=== PATIENT | female | born 1955 | race Caucasian/White ===

== ENCOUNTER 2017-03-06 01:29 | Inpatient (IN) | payer OTHER ==
--- NOTE | ~2017-03-06 | PN ---
Unit #: [id number] #: [id number] Patient: CESARIO LESTER [id number] [facility] [address] [place] [address] [id number] I MR#: [id number] NAME: CESARIO LESTER ROOM: P202 Age: 61 Sex: F Admission Date: 03/06/2017 : 1955 Attending Physician: Ramón [place] M.D. Admitting Physician: Ramón [place] M.D. Primary Care Physician: Andreia JEFFERSON PROGRESS NOTES DATE 03/12/2017 DISCUSSION Cesario has completed detox but still complains of anxiety "nerves through the roof" and difficulty with depression. She has no actual suicidal ideation but cannot contract for safety. She appears mildly disheveled but is more alert and oriented and participating more appropriately. She has no evidence of psychosis. ASSESSMENT Opiate dependence, major depression. PLAN We will restart Neurontin 800 mg three times a day from her primary care physician for neuropathy and increase Celexa to 40 mg a day. Dictated by... Ramón [place] M.D. RUI/brit TD: 03/13/2017 11:45 JOB #: [id number] RONNY PROGRESS NOTES Page 1 of 1 X Ramón [place] MD PROGRESS NOTE
--- NOTE | ~2017-03-06 | PN ---
Unit #: [id number] #: [id number] Patient: CESARIO LESTER [id number] [facility] [address] [place] [address] [id number] I MR#: [id number] NAME: CESARIO LESTER ROOM: P202 Age: 61 Sex: F Admission Date: 03/06/2017 : 1955 Attending Physician: Ramón [place] M.D. Admitting Physician: Ramón [place] M.D. Primary Care Physician: Andreia JEFFERSON PROGRESS NOTES DATE 03/13/2017 DISCUSSION Cesario shows improvement today. Her mood is less labile with a brighter affect. She is alert and fully oriented with no evidence of psychosis. She is able to contract for safety upon discharge. ASSESSMENT 1. Opiate dependence. 2. Major depression. PLAN Anticipate discharge in the morning with followup through community mental health. Dictated by... Ramón [place] M.D. MRH/bzg TD: 03/15/2017 12:55 JOB #: [id number] [facility] PROGRESS NOTES Page 1 of 1 X Ramón [place] MD X PROGRESS NOTE
--- NOTE | ~2017-03-06 | PN ---
Unit #: [id number] #: [id number] Patient: CESARIO LESTER [id number] [facility] [address] [place] [address] [id number] MR#: [id number] NAME: CESARIO LESTER ROOM: P202 Age: 61 Sex: F Admission Date: 03/06/2017 : 1955 Attending Physician: Ramón [place] M.D. Admitting Physician: Ramón [place] M.D. Primary Care Physician: Rachele Lerma PROGRESS NOTES DATE 03/10/2017 DISCUSSION Cesario is tolerating her antidepressant medication with no significant adverse side effect. She is somewhat sleepy this morning and continues to received detox medications. She is alert and fully oriented with no evidence of psychosis but ongoing mood lability. ASSESSMENT Benzodiazepine dependence, major depression. PLAN Continue current treatment plan. Dictated by... Ramón [place] M.D. MRH/ts TD: 03/13/2017 08:54 JOB #: [id number] RONNY PROGRESS NOTES Page 1 of 1 X Ramón [place] MD X PROGRESS NOTE
--- NOTE | ~2017-03-06 | HP ---
Unit #: [id number] #: [id number] Patient: CESARIO LESTER [id number] [facility] [address] [place] [address] [id number] I MR#: [id number] NAME: CESARIO LESTER ROOM: P202 Age: 61 Sex: F Admission Date: 03/06/2017 : 1955 Attending Physician: Ramón [place] M.D. Admitting Physician: Ramón [place] M.D. Primary Care Physician: Andreia Alexander HISTORY AND PHYSICAL HISTORY OF PRESENT ILLNESS Cesario is a 61 year old admitted to [address] [place] [address] because of her drug use which now includes IV heroin. PAST MEDICAL HISTORY 1. Long history of illicit substance abuse to include crack cocaine and IV heroin. 2. COPD. 3. Hepatitis C. a. Cirrhosis. 4. History of PUD. PAST SURGICAL HISTORY Hysterectomy. ALLERGIES Tolvin, codeine, aspirin. SOCIAL HISTORY Smokes greater than 1 pack per day. Denies alcohol. Admits to a long history of illicit substance abuse. FAMILY HISTORY Medically noncontributory. REVIEW OF SYSTEMS CONSTITUTIONAL: No fever or chills. HEENT: Denies any sore throat, ear pain or runny nose. CARDIOVASCULAR: Denies chest pain, irregular heart rhythm or palpitations. CHEST: Denies shortness of breath or cough. No hemoptysis. GASTROINTESTINAL: Denies nausea, vomiting, diarrhea or chronic constipation. ENDOCRINE: Denies history of increased thirst or urination. No recent significant weight loss or gain. GENITOURINARY: Denies dysuria, frequency, or hematuria. SKIN: Denies any rashes. HEMATOLOGIC: Denies history of increased bleeding or bruising. MUSCULOSKELETAL: Denies any hot, swollen joints. No generalized muscle pain. NEUROLOGIC: Denies problems with vision or speech. No frequent, severe headaches. No numbness, tingling or weakness in any extremities. Denies loss of bladder or bowel control. Unit #: [id number] #: [id number] Patient: CESARIO LESTER CURRENT MEDICATIONS 1. Detox protocol. 2. Proventil inhaler p.r.n. 3. Spiriva 18 mcg daily. 4. Claritin 10 mg daily. 5. Lyrica 150 mg b.i.d. 6. Lioresal 10 mg b.i.d. 7. Spironolactone 50 mg daily. 8. Lasix 40 mg daily. PHYSICAL EXAMINATION GENERAL: Alert, well-nourished, in no apparent distress. VITAL SIGNS: Blood pressure 100/56, heart rate 80, respirations 16, temperature 98.6. WEIGHT: 118. HEIGHT: 5 feet 1 inches. SKIN: Warm and dry without rash or lesion. HEENT: Normocephalic. TMs not viewed. Oral and nasal passages clear. Conjunctivae clear. PERRLA. EOMs intact. NECK: Supple without lymphadenopathy or thyromegaly. HEART: Regular rate and rhythm without murmur. LUNGS: Clear. ABDOMEN: Soft, nontender. : Not done. EXTREMITIES: No evidence of cyanosis, clubbing or edema. Moves all without focal deficit. NEUROLOGICAL: Grossly within normal limits. Cranial Nerves: II: Visual ulloa are intact. III, IV AND : Extraocular movements are intact. Pupils are equal, round and reactive to light. V: Facial sensation is grossly normal. VII: Facial movements and expression are normal. VIII: Auditory acuity grossly intact. IX, X: Uvula is midline. Phonation is normal. XI: Patient shrugs shoulders and turns head normally. XII: Tongue protrudes in the midline. Sensory and Motor Function: Sensory and motor sensation is grossly normal. Motor: moves all extremities well. Coordination: Gait is normal. Deep Tendon Reflexes: Intact. IMPRESSION Psychiatric admission. RECOMMENDATIONS PSYCHIATRIC: Per psychiatrist. MEDICAL: See no contraindications to participate in facility's activities. MEDICAL PROGNOSIS Good. MEDICAL CONDITION Stable. Dictated by... Danna Car P.A.-C. for Genie Witt M.D. Unit #: [id number] #: [id number] Patient: CESARIO LESTER SUE/dzjames TD: 03/06/2017 21:24 JOB #: [id number] HISTORY AND PHYSICAL Page 1 of 1 X Danna Car HISTORY AND PHYSICAL
--- NOTE | ~2017-03-06 | DS ---
Unit #: [id number] #: [id number] Patient: CESARIO LESTER [id number] [facility] [address] [place] [address] [id number] I MR#: [id number] NAME: CESARIO LESTER ROOM: P202 Age: 61 Sex: F Admission Date: 03/06/2017 : 1955 Discharge Date: 03/14/2017 Attending Physician: Ramnó [place] M.D. Primary Care Physician: Andreia [place] DISCHARGE SUMMARY REASON FOR ADMISSION Cesario is a 61-year-old woman with a history of polysubstance dependence, who had increasing depression, hopelessness, and had been using opioids and cocaine. She had a plan to shoot herself and could not contract for safety. She was admitted for stabilization. DIAGNOSTIC STUDIES LABORATORY RESULTS: Please see hospital chart. HOSPITAL COURSE The patient was admitted and placed on the opioid detox protocol and suicide precautions. Physical examination was conducted and was unremarkable and her home medications were restarted. She had initiation of antidepressant treatment which was well tolerated and effective. She continued to complain of anxiety which was treated with Neurontin. On the date of discharge, she was able to contract for safety in good condition and had no further suicidal ideation, intent, or plan. DISCHARGE DIAGNOSES AXIS I: Opioid dependence, major depression. AXIS II: No diagnosis. AXIS III: Hepatitis C, chronic obstructive pulmonary disease, history of cirrhosis. AXIS IV: AXIS V: DISCHARGE INSTRUCTIONS Follow up with primary care physician and with chemical dependence program as identified in conjunction with the unit social media developer. DISCHARGE MEDICATIONS Celexa 20 mg daily for depression, trazodone 200 mg at bedtime for insomnia, Neurontin 800 mg t.i.d. for anxiety. Other medications per primary care physician. CONDITION AT DISCHARGE Fair. PROGNOSIS Fair to good. Unit #: [id number] #: [id number] Patient: CESARIO LESTER DIET AND ACTIVITY Per primary care doctor. Dictated by... Ramón [place] M.D. RUI/dail TD: 03/15/2017 03:23 JOB #: [id number] DISCHARGE SUMMARY Page 1 of 1 X Ramón [place] MD X DISCHARGE SUMMARY
[~2017-03-06 01:29] MED LIST: ADVAIR 5001 DISK W/D PO; ALBUTEROL MININEB NEB; ALBUTEROL17 GM INH; ALBUTEROL17 GM NEB; ATROVENT NEB; FLAGYL PO; FLEXERIL PO; IMODIUM2 MG PO; LEVAQUIN PO; MEDROL PO; NICOTINE T1 PATCH .2 TOP; NORCO 5/325 TAB1 TAB PO; PREDNISONE PO; VICODIN 5/500 T1 TAB PO
[2017-03-06 09:52] LABS: ALBUMIN SERUM 3.4 g/dL (3.5-5.0); BILIRUBIN,TOTAL 0.4 mg/dL (0.2-2.0); CREATININE SERUM 0.8 mg/dL (0.6-1.4); GLOM FILT RATE Estimated 80.8 mL/min (>60); POTASSIUM 3.7 mmol/L (3.5-5.1); PROTEIN TOTAL SERUM 6.8 g/dL (6.0-8.3)
[2017-03-06 10:12] LABS: BASOPHIL% 0.7 % (0-2.5); EOSINOPHIL# 0.1 X10e3 (0-0.7); EOSINOPHIL% 2.9 % (0.0-7.0); HEMOGLOBIN 13.6 gm/dL (12.0-16.0); LYMPHOCYTE# 1.3 X10e3 (1.0-3.5); LYMPHOCYTE% 26.9 % (17.0-45.0); MEAN CELL VOLUME 89.2 FL (83-96); MEAN CORPUSCULAR HEMOGLOBIN 30.3 PG (28-34); MEAN PLATELET VOLUME 9.4 FL (6.5-11.5); MONOCYTE# 0.4 X10e3 (0-1.0); MONOCYTE% 7.9 % (3.0-12.0); NEUTROPHIL% 61.6 % (40-75); RED BLOOD COUNT 4.49 X10e (3.90-5.30); RED CELL DISTRIBUTION WIDTH 13.8 % (11.0-15.5); WHITE BLOOD COUNT 4.9 X10e3 (4.0-10.5)
[2017-03-06 11:27] LABS: DIFF IND YES; PLATELET COUNT 75 X10e3 (140-420)
[2017-03-06 11:31] LABS: PLATELET ESTIMATE DECREASED (NORMAL)
[2017-03-06 11:32] LABS: RBC NORMAL YES
[2017-03-07 13:52] LABS: AMPHETAMINE NEG (NEG); BARBITURATES NEG (NEG); BENZODIAZEPINES NEG (NEG); COCAINE POS (NEG); MARIJUANA NEG (NEG); OPIATES NEG (NEG); TRICYCLIC ANTIDEPRESSANTS NEG (NEG); U METHADONE NEG (NEG)
== END 2017-03-14 09:50 | DRG 897 ==
LOC: P2S 01:29
PROVIDERS: Psychiatry & Neurology Psychiatry
PROC: HZ2ZZZZ Detoxification Services for Substance Abuse Treatment (ICD-10-PCS; principal; 2017-03-06)
DX: F10.20 Alcohol dependence, uncomplicated (principal); K74.69 Other cirrhosis of liver; F13.20 Sedative, hypnotic or anxiolytic dependence, uncomplicated; F32.9 Major depressive disorder, single episode, unspecified; B19.20 Unspecified viral hepatitis C without hepatic coma; J44.9 Chronic obstructive pulmonary disease, unspecified; D41.9 Neoplasm of uncertain behavior of unspecified urinary organ; Z87.11 Personal history of peptic ulcer disease; F17.210 Nicotine dependence, cigarettes, uncomplicated; Z88.6 Allergy status to analgesic agent; Z88.5 Allergy status to narcotic agent; Z88.8 Allergy status to other drugs, medicaments and biological substances
CPT/HCPCS: 80053; 80307; 85025; 86592